=== PATIENT | male | born 1970 | race Caucasian/White ===

== ENCOUNTER 2016-04-12 07:51 | Emergency (ER) | payer BC ==
[2016-04-12 08:15] VITALS: BP 150/103; PULSE 88; TEMP 98.1; BMI 26.8
[2016-04-12] MEDS ORDERED: SODIUM CHLORIDE 1,000 ML IV SCH (08:15)
--- NOTE | 2016-04-12 08:18 | PDOC ---
History of Present Illness - General Chief Complaint: Pain, Acute Stated Complaint: ABD PAIN Time Seen by Provider: 04/12/16 07:56 - History of Present Illness Initial Comments: 04/12/16 08:14 45-year-old male with a past medical history of hypertension and GERD Primary care physician-Dr. Alston Patient is complaining of 4 days of left lower quadrant abdominal pain, gradually progressive He has had a diminished appetite for the past 48 hours, but denies any nausea or vomiting He denies any fevers or chills He is complaining of 24 hours of diarrhea, without blood or mucus he denies any dysuria urgency or frequency He denies any flank pain He states he has not had his first screening colonoscopy yet He denies any prior history of diverticulitis He denies any prior history of any abdominal surgery He denies any other complaints at this time, and the remainder of the review of systems is negative Past History - Past Medical History Allergies/Adverse Reactions: Allergies Allergy/AdvReac Type Severity Reaction Status Date / Time No Known Allergies Allergy Verified 04/12/16 08:01 Home Medications: Ambulatory Orders Omeprazole [Prilosec (RX)] 40 mg PO DAILY 01/16/14 Valsartan/Hydrochlorothiazide [Valsartan-Hctz 320-25 mg Tab] 1 each PO DAILY Levofloxacin [Levaquin] 500 mg PO DAILY #10 tablet 04/12/16 Metronidazole [Flagyl -] 250 mg PO TID #30 tablet 04/12/16 GI Disorders: Yes (GERD) HTN: Yes (took meds at 630am) - Psycho/Social/Smoking Cessation Hx Anxiety: No Suicidal Ideation: No Smoking History: Former smoker Information on smoking cessation initiated: No Hx Alcohol Use: No Review of Systems - Review of Systems Able to Perform ROS?: Yes Comments:: 04/12/16 08:16 12 point review of systems is as per history of present illness and otherwise negative *Physical Exam - Physical Exam Comments: 04/12/16 08:16 Physical exam GENERAL: The patient is awake, alert, and fully oriented, and in no apparent distress. HEAD: Normal with no signs of trauma. EYES: Sclera anicteric, conjunctiva normal ENT: Because membranes slightly dry NECK: Normal range of motion, supple LUNGS: Breath sounds equal, clear to auscultation bilaterally. No wheezes, and no crackles. HEART: Regular rate and rhythm, normal S1 and S2 without murmur, rub or gallop. ABDOMEN: The abdomen is soft with hypoactive but present bowel sounds There is left lower quadrant to palpation, with voluntary guarding, but no rebound No other abdominal tenderness is noted There is no hepatosplenomegaly There is no CVA tenderness EXTREMITIES: Normal range of motion, no edema. No clubbing or cyanosis. No cords, erythema, or tenderness. NEUROLOGICAL: Cranial nerves II through XII grossly intact. Normal speech, normal gait. PSYCH: Normal mood, normal affect. SKIN: Warm, Dry, ED Treatment Course - LABORATORY CBC & Chemistry Diagram: 04/12/16 08:15 04/12/16 08:15 - RADIOLOGY Radiology Studies Ordered: Category Date Time Status ABDOMEN & PELVIS CT WITH CONTR [CT] Stat CT Scan 04/12/16 08:13 Ordered Medical Decision Making - Medical Decision Making 04/12/16 08:17 Most likely first episode of acute diverticulitis Will hydrate, and check CT scan 04/12/16 12:31 Laboratory Results - last 24 hr 04/12/16 04/12/16 04/12/16 08:15 08:15 08:16 WBC 5.8 RBC 6.20 H Hgb 18.8 H Hct 55.6 H MCV 89.6 MCHC 33.8 RDW 13.5 Plt Count 241 MPV 7.9 Sodium 132 L Potassium 3.7 Chloride 96 L Carbon Dioxide 27 Anion Gap 9 BUN 10 Creatinine 0.9 Creat Clearance w eGFR > 60 Random Glucose 99 Calcium 9.5 Magnesium 1.9 Total Bilirubin 1.0 AST 30 ALT 21 Alkaline Phosphatase 63 Total Protein 8.0 Albumin 4.3 Lipase 30 Urine Color Yellow Urine Appearance Sl cloudy Urine pH 7.0 Ur Specific [place] 1.015 Urine Protein 1+ H Urine Glucose (UA) Negative Urine Ketones Negative Urine Blood Negative Urine Nitrite Negative Urine Bilirubin Negative Urine Urobilinogen 0.2 e.u/dl Ur Leukocyte Esterase Negative Urine RBC 0-3 Urine WBC 0-3 Ur Epithelial Cells Few Urine Bacteria Few Hyaline Casts 3-5 Patient feeling better with IV hydration The abdomen and pelvis as read by me-probable acute diverticulitis Patient given Levaquin and Flagyl CT scan of the abdomen and pelvis as read by radiology CT findings suggestive of distal descending colonic epiploic appendagitis vs Diverticulitis cannot be completely excluded Patient has seen in the past 04/12/16 12:44 Case and all results discussed with Dr. Fuentes We'll discharge to home on Levaquin and Flagyl, Protonix as per GI, and Naprosyn [id number] for 3-4 days He will be seen by GI in the office on Sunday *DC/Admit/Observation/Transfer Diagnosis at time of Disposition: Acute diverticulitis - Discharge Dispostion Disposition: HOME Condition at time of disposition: Stable - Referrals Referrals: Willis Perkins MD [Staff Physician] - (Call today to be seen on Sunday) - Patient Instructions Printed Discharge Instructions: DI for Diverticulitis Additional Instructions: Eat a low fiber, light diet for the next few days until you see GI in the office on Sunday Levaquin-one pill daily-start tomorrow Flagyl-one pill 3 times a day-start tonight Increase fluid intake Continue taking your omeprazole daily taking your omeprazole daily as you are doing Naprosyn-OTC -one pill every 12 hours for the next 3-4 days Please follow-up with GI in the office on Sunday-please call today for an appointment time for Sunday Followup with your primary care physician in 24-48 hours Return immediately if you worsen in any way Take your medications as directed - Post Discharge Activity Work/School Note: Back to Work
[2016-04-12 08:44] LABS: URINE BILIRUBIN Negative (NEGATIVE); URINE BLOOD Negative (NEGATIVE); URINE GLUCOSE (UA) Negative (NEGATIVE); URINE KETONE Negative (NEGATIVE); URINE LEUK ESTERASE Negative (NEGATIVE); URINE NITRITE Negative (NEGATIVE); URINE UROBILINOGEN 0.2 E.U/dl (0.2-1.0)
[2016-04-12 08:52] LABS: URINE APPEARANCE SL CLOUDY; URINE COLOR YELLOW; URINE PROTEIN 1+ (NEGATIVE); URINE RBC 0-3 /hpf (0-3); URINE WBC 0-3 (3-5)
[2016-04-12 08:53] LABS: URINE BACTERIA FEW /hpf (NEGATIVE)
[2016-04-12 08:53] LABS: MCH 30.3 pg (25.7-33.7); MCHC 33.8 g/dl (32.0-35.9); MEAN CELL VOLUME 89.6 fl (80-96); MEAN PLT VOLUME 7.9 fl (7.5-11.1); PLATELET COUNT 241 K/MM3 (134-434); RDW 13.5 % (11.9-15.9); WHITE BLOOD COUNT 5.8 K/mm3 (4.0-10.0)
[2016-04-12 09:17] LABS: ALBUMIN 4.3 g/dl (3.5-5.0); ALK PHOS 63 U/L (32-92); ANION GAP 9 (8-16); CALCIUM 9.5 mg/dl (8.4-10.2); CO2 27 mmol/L (22-28); CREATININE 0.9 mg/dl (0.6-1.3); GLUCOSE,RANDOM 99 mg/dl (74-106); MAGNESIUM 1.9 mg/dL (1.8-2.4); SGOT/AST 30 U/L (10-42); SGPT/ALT 21 U/L (10-40)
[2016-04-12] MEDS ORDERED: LEVOFLOXACIN 500 MG IVPB 100 ML IVPB ONE ×2 (10:34→10:59)
[2016-04-12] MEDS ORDERED: METRONIDAZOLE 500 MG PREMIXED 100 ML IVPB ONE ×2 (10:35→11:00)
== END 2016-04-12 12:30 | disposition home or self-care (01) ==
LOC: FER 07:51
DX: K57.92 Diverticulitis of intestine, part unspecified, without perforation or abscess without bleeding (principal); K21.9 Gastro-esophageal reflux disease without esophagitis; Z87.891 Personal history of nicotine dependence; I10 Essential (primary) hypertension
CPT/HCPCS: 36415; 74177-TC; 80053; 81003; 81015; 83690; 83735; 85027; 87040; 99282-25

== ENCOUNTER 2016-05-19 12:56 | Day surgery (SDC) | payer BC ==
[2016-05-18 14:30] VITALS: BMI 25.2
[2016-05-19 13:16] VITALS: TEMP 97.9
[2016-05-19] MEDS ORDERED: PROPOFOL 20 ML ONE ×2 (14:35)
[2016-05-19] MEDS ORDERED: LIDOCAINE HCL/PF 1% SDV 5ML VIAL ONE (14:35)
[2016-05-19 15:19] VITALS: BP 119/76; PULSE 82
--- NOTE | 2016-05-23 13:08 | PATH ---
Surgical Pathology Report Patient Name: YESSENIA LARSEN [facility]. Rec. #: [id number] /Age/Gender: 1970 (Age: 45) / M Account: [id number] Location: U-ENDOSCOPY Taken: 05/19/2016 Received: 05/22/2016 Reported: 05/23/2016 Physicians: Willis Perkins M.D. Specimen(s) Received A: BX POLYP SIGMOID B: BX DISTAL TRANSVERSE COLON POLYPS (3) C: POLYP TRANSVERSE COLON D: BX POLYPS DESCENDING COLON E: BX RECTUM Clinical History Abdominal pain Rectal ulcers, proctitis, grade 2 hemorrhoids, redundant colon, multiple colon polyps, diverticulosis Final Diagnosis A. COLON SIGMOID, POLYP, BIOPSY: FRAGMENTS OF INFLAMMATORY/POSTINFLAMMATORY TYPE POLYP. B. COLON, DISTAL TRANSVERSE COLON POLYPS x3, BIOPSY: INFLAMMATORY/POSTINFLAMMATORY TYPE POLYPS (x3). C. COLON, TRANSVERSE, POLYP, POLYPECTOMY: FRAGMENTS OF TUBULAR ADENOMA. D. COLON, DESCENDING, POLYPS, BIOPSY: INFLAMMATORY/POSTINFLAMMATORY TYPE POLYPS. E. RECTUM, BIOPSY: RECTAL MUCOSA WITH MILD ACTIVE PROCTITIS (SEE COMMENT) NO EVIDENCE OF SIGNIFICANT ARCHITECTURAL DISTORTION NO DYSPLASIA. Comment: This finding is nonspecific and may represent active proctitis with etiologies include infections and drug/toxin injury. No significant features are seen; idiopathic bowel disease without established chronicity is less likely. Clinical, endoscopic, serological correlations and follow up are suggested. Electronically Signed Matt Solomon M.D. Gross Description A. Received in formalin, labeled "biopsy polyp sigmoid" are 4 asif, irregular portions of soft tissue ranging from 0.1-0.3 cm in greatest dimension. The specimens are submitted in toto in one cassette. B. Received in formalin, labeled "biopsy distal transverse colon polyps" are 2 asif, irregular portions of soft tissue measuring 0.2 and 0.8 cm in greatest dimension. The specimens are submitted in toto in one cassette. C. Received in formalin, labeled "biopsy polyp transverse colon" are 3 asif, irregular portions of soft tissue ranging from 0.1-0.3 cm in greatest dimension. The specimens are submitted in toto in one cassette. D. Received in formalin, labeled "biopsy polyps descending colon" are 3 asif, irregular portions of soft tissue ranging from 0.2-0.8 cm in greatest dimension. The specimens are submitted in toto in one cassette. E. Received in formalin, labeled "biopsy rectal ulcers" are 2 asif, irregular portions of soft tissue averaging 0.3 cm in greatest dimension. The specimens are submitted in toto in one cassette. 05/22/201605/22/2016
== END 2016-05-19 15:19 | disposition home or self-care (01) ==
LOC: JASU-ENDO 12:56
PROVIDERS: ATTEND Internal Medicine Gastroenterology
PROC: 0DBL8ZX Excision of Transverse Colon, Via Natural or Artificial Opening Endoscopic, Diagnostic (ICD-10-PCS; 2016-05-19)
PROC: 0DBN8ZX Excision of Sigmoid Colon, Via Natural or Artificial Opening Endoscopic, Diagnostic (ICD-10-PCS; 2016-05-19)
PROC: 0DBP8ZX Excision of Rectum, Via Natural or Artificial Opening Endoscopic, Diagnostic (ICD-10-PCS; 2016-05-19)
PROC: 0DBM8ZX Excision of Descending Colon, Via Natural or Artificial Opening Endoscopic, Diagnostic (ICD-10-PCS; principal; 2016-05-19 14:00)
DX: K57.30 Diverticulosis of large intestine without perforation or abscess without bleeding (principal); K63.89 Other specified diseases of intestine; D12.3 Benign neoplasm of transverse colon; D12.4 Benign neoplasm of descending colon; D12.5 Benign neoplasm of sigmoid colon; K62.6 Ulcer of anus and rectum; K64.8 Other hemorrhoids
CPT/HCPCS: 88305-TC